=== PATIENT | female | born 1990 | race Caucasian/White ===

== ENCOUNTER 2018-12-15 09:42 | Emergency (ER) | payer OTHER ==
[2018-12-15 09:56] VITALS: BP 108/64; BMI 22.3
[2018-12-15] MEDS ORDERED: ONDANSETRON *ODT* 4 MG TABLET SL ONE (10:21)
[2018-12-15] MEDS ORDERED: ACETAMINOPHEN 325 MG TABLET (FP) PO ONE (10:21)
[2018-12-15] MEDS ORDERED: DEXAMETHASONE LIQUID 0.5 MG/5 ML PO ONE (10:21)
--- NOTE | 2018-12-15 10:26 | PDOC ---
History of Present Illness - General Chief Complaint: Sore Throat Stated Complaint: SORE THROAT/ FEVER Time Seen by Provider: 12/15/18 09:55 History Source: Patient Exam Limitations: No Limitations Past History - Travel Traveled outside of the country in the last 30 days: No Close contact w/someone who was outside of country & ill: No - Past Medical History Allergies/Adverse Reactions: Allergies Allergy/AdvReac Type Severity Reaction Status Date / Time Iodinated Contrast Media Allergy Severe Difficulty Verified 12/15/18 09:56 [IV Dye, Iodine Containing Breathing Contrast ] Home Medications: Ambulatory Orders Albuterol Sulfate Inhaler - [Ventolin HFA Inhaler -] 1 - 2 inh PO QID #1 inhaler 09/24/14 Asthma: Yes COPD: No - Immunization History Td Vaccination: Yes Immunization Up to Date: Yes - Psycho Social/Smoking Cessation Hx Smoking Status: No Smoking History: Never smoked Number of Cigarettes Smoked Daily: 0 Cigars Per Day: 0 Information on smoking cessation initiated: No Hx Alcohol Use: No Drug/Substance Use Hx: No Hx Substance Use Treatment: No Review of Systems - Review of Systems Able to Perform ROS?: Yes Comments:: 12/15/18 10:22 CONSTITUTIONAL: Present: fever, body aches Absent: fever, chills, diaphoresis, generalized weakness, malaise, loss of appetite HEENT: Present: sore throat Absent: rhinorrhea, nasal congestion, throat pain, throat swelling, difficulty swallowing, mouth swelling, ear pain, eye pain, visual Changes CARDIOVASCULAR: Absent: chest pain, loss of consciousness, palpitations, irregular heart rate, peripheral edema RESPIRATORY: Absent: cough, shortness of breath, dyspnea with exertion, orthopnea, wheezing, stridor, hemoptysis GASTROINTESTINAL: Absent: abdominal pain, abdominal distension, nausea, vomiting, diarrhea, constipation, melena, hematochezia GENITOURINARY: Absent: dysuria, frequency, urgency, hesitancy, hematuria, flank pain, genital pain MUSCULOSKELETAL: Absent: myalgia, arthralgia, joint swelling SKIN: Absent: rash, itching, pallor HEMATOLOGIC/IMMUNOLOGIC: Absent: easy bleeding, easy bruising, lymphadenopathy, frequent infections ENDOCRINE: Absent: unexplained weight gain, unexplained weight loss, heat intolerance, cold intolerance NEUROLOGIC: Absent: headache, focal weakness or paresthesias, dizziness, unsteady gait, seizure, mental status changes, bladder or bowel incontinence PSYCHIATRIC: Absent: anxiety, depression, suicidal or homicidal ideation, hallucinations. Is the patient limited Swedish proficient: No *Physical Exam - Vital Signs Last Vital Signs Temp Pulse Resp BP Pulse Ox 100.4 F H 119 H 19 108/64 99 12/15/18 09:54 12/15/18 09:54 12/15/18 09:54 12/15/18 09:54 12/15/18 09:54 - Physical Exam Comments: 12/15/18 10:24 GENERAL: Well developed, well nourished. Awake and alert. No acute distress. HEENT: Normocephalic, atraumatic. PERRLA, EOMI. No conjunctival pallor. Sclera are non- icteric. Moist mucous membranes. Oropharynx is erythematous with 3+ tonsils and exudate. Uvula is midline. TM's are pearly mary in color with good cone of light b/l. NECK: Supple. Full ROM. No JVD. Carotid pulses 2+ and symmetric, without bruits. No thyromegaly. No lymphadenopathy. CARDIOVASCULAR: Regular rate and rhythm. No murmurs, rubs, or gallops. Distal pulses are 2+ and symmetric. PULMONARY: No evidence of respiratory distress. Lungs clear to auscultation bilaterally. No wheezing, rales or rhonchi. SKIN: Warm and dry. Normal capillary refill. No rashes. No jaundice. NEUROLOGICAL: Alert, awake, appropriate. Cranial nerves 2-12 intact. No deficits to light touch and temperature in face, upper extremities and lower extremities. No motor deficits in the in face, upper extremities and lower extremities. Normoreflexic in the upper and lower extremities. Normal speech. Toes are down- going bilaterally. Gait is normal without ataxia. PSYCHIATRIC: Cooperative. Good eye contact. Appropriate mood and affect. Medical Decision Making - Medical Decision Making 12/15/18 10:24 The patient is a 28-year-old female past medical history of asthma who presents to the ER today for sore throat and fever for 1 day. She states that it is difficult to swallow. She tried taking Tylenol yesterday with some relief of her symptoms. She has not taken any medication today. She is febrile at triage. Denies cough, chills, vomiting and diarrhea. She does admit to associated nausea. A/P: Pharyngitis On exam throat is erythematous with 3+ tonsils and exudate. Uvula is midline Patient febrile to 100.4 Fahrenheit in triage. Centor criteria is a 3 at this time. Rapid strep sent Meds ordered Reevaluate 12/15/18 11:21 Strep positive Requesting bicillin shot Will dc home with supportive therapy and PCP follow up Patient tolerates Bicillin shot. I discussed the physical exam findings, ancillary test results and final diagnoses with the patient. I answered all of the patient's questions. The patient was satisfied with the care received and felt comfortable with the discharge plan and treatment plan. The Patient agrees to follow up with the primary care physician/specialist within 24-72 hours. Return precautions were given. Discharge - Discharge Information Problems reviewed: Yes Clinical Impression/Diagnosis: Strep throat Condition: Stable Disposition: HOME - Admission No - Follow up/Referral Referrals: Chandana Thomas MD [Staff Physician] - - Patient Discharge Instructions Patient Printed Discharge Instructions: DI for Strep Throat Additional Instructions: You have strep throat. This is a bacterial infection. You were treated with an injection of Bicillin (antibiotic) you do not need any more antibiotics at this time. Take the steroids as directed starting tomorrow. You may take Tylenol 650mg every 4 hours as needed for pain or fever. Warm water gargles and cough drops and just may also help her symptoms. Please throw way your toothbrush 3 days into treatment to prevent reinfection. Please follow up with your primary care doctor next week. Return to emergency department if you have worsening pain, difficulty swallowing , changes in your voice, lightheadedness, dizziness, or any changes in your symptoms. - Post Discharge Activity Work/Back to School Note: Back to Work
[2018-12-15] MEDS ORDERED: ACETAMINOPHEN 325 MG TABLET (FP) ONE (10:30)
[2018-12-15] MEDS ORDERED: DEXAMETHASONE SOD PHOSPHATE 10 MG/1 ML VIAL ONE (10:30)
[2018-12-15] MEDS ORDERED: ONDANSETRON *ODT* 4 MG TABLET ONE (10:31)
[2018-12-15] MEDS ORDERED: PENICILLIN G BENZATHINE 1,200,000 UNIT/2 ML PFS IM ONE ×2 (11:27→11:49)
[2018-12-15 12:24] VITALS: PULSE 108; TEMP 99.9
== END 2018-12-15 12:24 | disposition home or self-care (01) ==
LOC: JERFT 09:42
DX: J02.0 Streptococcal pharyngitis (principal); J45.909 Unspecified asthma, uncomplicated; Z91.041 Radiographic dye allergy status
CPT/HCPCS: 87880; 99282-25; Q0162

== ENCOUNTER 2019-01-19 12:35 | Emergency (ER) | payer OTHER ==
--- NOTE | 2019-01-19 12:42 | PDOC ---
Rapid Medical Evaluation Time Seen by Provider: 01/19/19 12:38 Medical Evaluation: Allergies Allergy/AdvReac Type Severity Reaction Status Date / Time Iodinated Contrast Media Allergy Severe Difficulty Verified 12/15/18 09:56 [IV Dye, Iodine Containing Breathing Contrast ] 01/19/19 12:39 CC: left sided chest pain x1 week- worse with deep inspiration PE: No respiratory distress. Lungs with left sided wheezes. Orders: EKG, UPT, CXR, nebs Patient will proceed to ER for continued evaluation. Discharge Disposition - Diagnosis Inspiratory wheeze on examination - Referrals - Patient Instructions - Post Discharge Activity
[2019-01-19 12:44] VITALS: BP 114/79; PULSE 77; TEMP 97.5; BMI 24.3
[2019-01-19] MEDS ORDERED: ALBUTEROL SO4 2.5/IPRATROPIUM 0.5 INH SOL 3 ML VIAL.NEB. NEB SCH (12:45)
[2019-01-19] MEDS ORDERED: DEXAMETHASONE LIQUID 0.5 MG/5 ML PO ONE (13:04)
[2019-01-19] MEDS ORDERED: DEXAMETHASONE SOD PHOSPHATE 10 MG/1 ML VIAL ONE (13:13)
[2019-01-19] MEDS ORDERED: ALBUTEROL SO4 2.5/IPRATROPIUM 0.5 INH SOL 3 ML VIAL.NEB. NEB ONE (13:13)
--- NOTE | 2019-01-19 14:10 | PDOC ---
History of Present Illness - General Chief Complaint: Chest Pain Stated Complaint: CHEST PAIN/ SOB Time Seen by Provider: 01/19/19 12:38 - History of Present Illness Initial Comments: 01/19/19 14:09 28-year-old female with a past medical history of asthma presents for 1 week of left-sided chest pain Past History - Past Medical History Allergies/Adverse Reactions: Allergies Allergy/AdvReac Type Severity Reaction Status Date / Time Iodinated Contrast Media Allergy Severe Difficulty Verified 01/19/19 12:44 [IV Dye, Iodine Containing Breathing Contrast ] Home Medications: Ambulatory Orders Albuterol Sulfate Inhaler - [Ventolin HFA Inhaler -] 1 - 2 inh PO QID #1 inhaler 09/24/14 predniSONE [Deltasone -] 40 mg PO DAILY #6 tablet 12/15/18 Asthma: Yes COPD: No - Immunization History Td Vaccination: Yes Immunization Up to Date: Yes - Psycho Social/Smoking Cessation Hx Smoking Status: No Smoking History: Never smoked Have you smoked in the past 12 months: No Number of Cigarettes Smoked Daily: 0 Cigars Per Day: 0 Information on smoking cessation initiated: No Hx Alcohol Use: No Drug/Substance Use Hx: No Hx Substance Use Treatment: No Review of Systems - Review of Systems Cardiac (ROS): Yes: Chest Pain *Physical Exam - Vital Signs Last Vital Signs Temp Pulse Resp BP Pulse Ox 97.5 F L 77 18 114/79 100 01/19/19 12:41 01/19/19 12:41 01/19/19 12:41 01/19/19 12:41 01/19/19 12:41 - Physical Exam Comments: 01/19/19 14:09 GENERAL: The patient is awake, alert, and fully oriented, in no acute distress. HEAD: Normal with no signs of trauma. EYES: sclera anicteric, conjunctiva clear. ENT: Ears normal NECK: Normal range of motion LUNGS: Breath sounds equal, clear to auscultation bilaterally. No wheezes, and no crackles. HEART: S1 and S2 without murmur, rub or gallop. ABDOMEN: Soft, nontender, normoactive bowel sounds. No guarding, no rebound. No masses. EXTREMITIES: Normal range of motion, no edema. No clubbing or cyanosis. No cords, erythema, or tenderness. NEUROLOGICAL: Cranial nerves II through XII grossly intact. Normal speech, normal gait. PSYCH: Normal mood, normal affect. SKIN: Warm, Dry, normal turgor, no rashes or lesions noted. ED Treatment Course - ADDITIONAL ORDERS Additional order review: Laboratory Results 01/19/19 13:00 Urine HCG, Qual Negative - Medications Given in the ED: ED Medications Discontinued Medications Generic Name Dose Route Start Last Admin Trade Name Mahsa PRN Reason Stop Dose Admin Albuterol/Ipratropium 1 amp 01/19/19 12:45 01/19/19 13:18 Duoneb - NEB 01/19/19 13:31 1 amp Q15M HIEU Administration Dexamethasone 10 mg 01/19/19 13:04 01/19/19 13:18 Decadron Liquid - PO 01/19/19 13:05 10 mg ONCE ONE Administration Medical Decision Making - Medical Decision Making 01/19/19 14:09 Patient was examined pre-and post DuoNeb. Her symptoms resolved post DuoNeb. I did not hear any wheezing. She was given Decadron her chest x-ray and EKG were normal. Follow-up with PCP Discharge - Discharge Information Problems reviewed: Yes Clinical Impression/Diagnosis: Asthma exacerbation Clinical Impression/Diagnosis: (Ruled Out): Inspiratory wheeze on examination Condition: Stable Disposition: HOME - Admission No - Follow up/Referral - Patient Discharge Instructions Additional Instructions: Continue your current medications as directed. Return to the emergency room for worsening symptoms. Without fail please follow-up with your primary care physician in 1 to 2 days for further evaluation and treatment options. - Post Discharge Activity
--- NOTE | 2019-01-19 15:09 | EKG ---
Test Reason : Blood Pressure : / mmHG Vent. Rate : 073 BPM Atrial Rate : 073 BPM P-R Int : 144 ms QRS Dur : 080 ms QT Int : 392 ms P-R-T Axes : 011 063 039 degrees QTc Int : 431 ms NORMAL SINUS RHYTHM NORMAL ECG NO PREVIOUS ECGS AVAILABLE Confirmed by DIANA SCOTT, KIRILL ([id number]) on 01/19/2019 3:09:03 PM Referred By: Confirmed By:KIRILL ORTIZ MD
== END 2019-01-19 14:22 | disposition home or self-care (01) ==
LOC: JERFT 12:35
PROC: 3E0F7GC Introduction of Other Therapeutic Substance into Respiratory Tract, Via Natural or Artificial Opening (ICD-10-PCS; principal; 2019-01-19)
DX: J45.901 Unspecified asthma with (acute) exacerbation (principal); Z91.041 Radiographic dye allergy status
CPT/HCPCS: 71046-TC-FY; 84703; 93005; 93010; 99281-25

== ENCOUNTER 2019-03-12 18:44 | Emergency (ER) | payer OTHER ==
[2019-03-12 18:48] VITALS: BP 107/69; PULSE 73; TEMP 98; BMI 23.9
--- NOTE | 2019-03-12 19:23 | PDOC ---
History of Present Illness - General Chief Complaint: Pain Stated Complaint: PAIN Time Seen by Provider: 03/12/19 19:00 History Source: Patient Exam Limitations: Clinical Condition - History of Present Illness Travel History: No Initial Comments: 03/12/19 19:18 Patient with no significant past medical history -0-1-2 LMP January 25 presented with complaint of intermittent crampy lower abdominal pain similar to when she had a miscarriage over a year ago. Patient denies vaginal bleeding. Patient report pain now 5 out of 10 cramping pain which was 8 out of 10 cramping pain earlier today. Reports pain started yesterday. Patient report finding a positive 2 days ago with home test. Denies vaginal discharge, urinary frequency, dysuria, back pains or burning with urination. Patient did not take anything for symptoms. Denies any other symptoms Timing/Duration: reports: intermittent Past History - Past Medical History Allergies/Adverse Reactions: Allergies Allergy/AdvReac Type Severity Reaction Status Date / Time Iodinated Contrast Media Allergy Severe Difficulty Verified 03/12/19 18:48 [IV Dye, Iodine Containing Breathing Contrast ] Home Medications: Ambulatory Orders Albuterol Sulfate Inhaler - [Ventolin HFA Inhaler -] 1 - 2 inh PO QID #1 inhaler 09/24/14 predniSONE [Deltasone -] 40 mg PO DAILY #6 tablet 12/15/18 Asthma: Yes COPD: No - Immunization History Td Vaccination: Yes Immunization Up to Date: Yes - Psycho Social/Smoking Cessation Hx Smoking Status: No Smoking History: Never smoked Have you smoked in the past 12 months: No Number of Cigarettes Smoked Daily: 0 Cigars Per Day: 0 Hx Alcohol Use: No Drug/Substance Use Hx: No Hx Substance Use Treatment: No Review of Systems - Review of Systems Able to Perform ROS?: Yes Is the patient limited [place]orese proficient: No Constitutional: No: Fever, Malaise HEENTM: No: Symptoms Reported, See HPI, Eye Pain, Blurred Vision, Tearing, Recent change in vision, Double Vision, Cataracts, Ear Pain, Ocular Prothesis, Ear Discharge, Nose Pain, Nose Congestion, Tinnitus, Nose Bleeding, Hearing Loss , Throat Pain, Throat Swelling, Mouth Pain, Dental Problems, Difficulty Swallowing, Mouth Swelling, Other Respiratory: No: Symptoms reported, See HPI, Cough, Orthopnea, Shortness of Breath, SOB with Exertion, SOB at Rest, Stridor, Wheezing, Productive cough, Hemoptysis, Other Cardiac (ROS): No: Symptoms Reported, See HPI, Chest Pain, Edema, Irregular Heart Rate, Lightheadedness, Palpitations, Syncope, Chest Tightness, Other ABD/GI: Yes: Symptoms Reported, See HPI, Abdominal Distended, Nausea, Abdominal cramping (intermittent cramping lower abd pain). No: Constipated, Diarrhea, Difficulty Swallowing, Poor Appetite, Vomiting, Indigestion : No: Symptoms Reported, Burning, Dysuria, Discharge, Frequency, Urgency, Other (vaginal bleeding) Musculoskeletal: No: Symptoms Reported Neurological: No: Symptoms reported, Weakness, Dizziness All Other Systems: Reviewed and Negative *Physical Exam - Vital Signs Last Vital Signs Temp Pulse Resp BP Pulse Ox 98 F 73 18 107/69 100 03/12/19 18:45 03/12/19 18:45 03/12/19 18:45 03/12/19 18:45 03/12/19 18:45 - Physical Exam General Appearance: Yes: Nourished, Appropriately Dressed. No: Apparent Distress HEENT: positive: Normal ENT Inspection Respiratory/Chest: positive: Lungs Clear, Normal Breath Sounds. negative: Respiratory Distress, Accessory Muscle Use Cardiovascular: positive: Regular Rhythm, Regular Rate Gastrointestinal/Abdominal: positive: Normal Bowel Sounds, Tender (mild suprapubic discomfort), Flat, Soft. negative: Organomegaly, Guarding, Rebound Musculoskeletal: positive: Normal Inspection. negative: CVA Tenderness Extremity: positive: Normal Capillary Refill, Normal Inspection, Normal Range of Motion Integumentary: positive: Normal Color Neurologic: positive: Fully Oriented, Alert, Normal Mood/Affect, Normal Response ED Treatment Course - LABORATORY CBC & Chemistry Diagram: 03/12/19 19:14 03/12/19 19:14 - RADIOLOGY Radiology Studies Ordered: Category Date Time Status TRANSVAGINAL US PREG [US] Stat Ultrasound 03/12/19 19:05 Ordered Medical Decision Making - Medical Decision Making 03/12/19 19:20 Patient with no significant past medical history -0-1-2 LMP January 25 presented with complaint of intermittent crampy lower abdominal pain similar to when she had a miscarriage over a year ago. Patient denies vaginal bleeding. Patient report pain now 5 out of 10 cramping pain which was 8 out of 10 cramping pain earlier today. Reports pain started yesterday. Denies vaginal discharge, urinary frequency, dysuria, back pains or burning with urination. Patient did not take anything for symptoms. Denies any other symptoms. Patient report finding a positive 2 days ago with home test Exam significant for mild suprapubic discomfort without guarding or rebound otherwise unremarkable exam. No vaginal bleeding on exam. Patient symptoms likely cramps from . Given patient finding out past test 2 days ago with no documented IUP, will do basic lab with CBC and beta-hCG in order transvaginal ultrasound to evaluate to rule out ectopic. 03/12/19 20:46 CBC unremarkable. Beta-hCG chills. 33,500. Patient stable pending transvaginal ultrasound 03/12/19 21:49 Transvaginal ultrasound shows IUP of 6.4 weeks gestational age. heart rate of 122 bpm. Patient asymptomatic and clinically stable for discharge with advised to take Tylenol as needed for pain and hot compress to abdomen as needed for abdominal discomfort with CR[employer] ANALYST follow-up Discharge - Discharge Information Problems reviewed: Yes Clinical Impression/Diagnosis: 6 weeks gestation of Condition: Stable Disposition: HOME - Admission No - Follow up/Referral Referrals: Richard Justice MD [Staff Physician] - - Patient Discharge Instructions Patient Printed Discharge Instructions: Common Discomforts and Bodily Changes During Additional Instructions: pelvic ultrasound shows live intra-uterine of 6wks and 4 days. Follow- up with your OB as needed. Take Tylenol as needed for pain and use warm compress as needed for abdominal pains. Come back to ER if worsening pain with vaginal bleeding - Post Discharge Activity
[2019-03-12 19:24] LABS: BASO % 0.6 % (0-2.0); EOS % 2.5 % (0-4.5); HEMATOCRIT 36.2 % (32.4-45.2); HEMOGLOBIN 11.8 GM/dL (10.7-15.3); LYMPH % 25.7 % (8-40); MCH 31.8 pg (25.7-33.7); MCHC 32.7 g/dl (32.0-36.0); MEAN CELL VOLUME 97.1 fl (80-96); MEAN PLT VOLUME 8.5 fl (7.5-11.1); MONO % 7.7 % (3.8-10.2); NEUT % 63.5 % (42.8-82.8); PLATELET COUNT 246 K/MM3 (134-434); RBC 3.72 M/mm3 (3.60-5.2); RDW 13.9 % (11.6-15.6); WHITE BLOOD COUNT 11.4 K/mm3 (4.0-10.0)
[2019-03-12 20:03] LABS: PH,URINE 5.5 (5.0-8.0); URINE APPEARANCE CLEAR; URINE BILIRUBIN NEGATIVE (NEGATIVE); URINE COLOR YELLOW; URINE GLUCOSE (UA) NEGATIVE (NEGATIVE); URINE KETONE NEGATIVE (NEGATIVE); URINE LEUK ESTERASE NEGATIVE (NEGATIVE); URINE NITRITE NEGATIVE (NEGATIVE); URINE PROTEIN NEGATIVE (NEGATIVE); URINE UROBILINOGEN 0.2 mg/dL (0.2-1.0)
[2019-03-12 20:18] LABS: ALBUMIN 3.7 g/dl (3.4-5.0); BILIRUBIN,TOTAL 0.3 mg/dL (0.2-1); BLOOD UREA NITROGEN 13.2 mg/dL (7-18); CALCIUM 8.8 mg/dL (8.5-10.1); CREATININE 0.8 mg/dL (0.55-1.3); POTASSIUM 3.9 mmol/L (3.5-5.1); TOT PROT 7.2 g/dl (6.4-8.2)
--- NOTE | 2019-03-12 20:43 | PDOC ---
*Physical Exam - Vital Signs Last Vital Signs Temp Pulse Resp BP Pulse Ox 98 F 73 18 107/69 100 03/12/19 18:45 03/12/19 18:45 03/12/19 18:45 03/12/19 18:45 03/12/19 18:45 ED Treatment Course - LABORATORY CBC & Chemistry Diagram: 03/12/19 19:14 03/12/19 19:14 - ADDITIONAL ORDERS Additional order review: 03/12/19 19:14 RBC 3.72 MCV 97.1 H MCHC 32.7 RDW 13.9 D MPV 8.5 Neutrophils % 63.5 Lymphocytes % 25.7 Monocytes % 7.7 Eosinophils % 2.5 Basophils % 0.6 Medical Decision Making - Medical Decision Making 03/12/19 19:59 Ms Kennedy is 28 yo F with no significant PMH, LMP January 25 presented with complaint of intermittent crampy lower abdominal pain similar to when she had a miscarriage over a year ago. No vaginal bleeding Pain is 5-8/10 Denies vaginal discharge, urinary frequency, dysuria, back pains or burning with urination. Pt seen by Midlevel Provider under my direct supervision Pt interviewed and examined Agree with GUILLERMO physical exam Ancillary studies reviewed Laboratory Tests 03/12/19 19:14 WBC 11.4 H Hgb 11.8 Hct 36.2 Plt Count 246 Type and Screen from 2013 Laboratory Tests 07/27/13 19:35 Blood Type O POSITIVE I agree with plan as outlined by Midlevel Provider 03/12/19 20:43 03/12/19 20:44 FINDINGS: Within the endometrium there is a gestational sac yolk sac or pole. heart motion 122 bpm. [place]-rump length measurement equals 6 weeks 4 days. Estimated date of delivery November 01, 2019. The uterus measures 9.8 x 5.2 x 6 cm. There is no evidence of myometrial masses. The right ovary measures 3 x 1.2 x 2.5 cm. There are no right ovarian masses. The left ovary measures 3.4 x 2.5 x 2.3 cm. Within the left ovary there is a complex corpus luteal cyst. There is no free fluid in the pelvis. IMPRESSION: Single living intrauterine fetus estimated gestational age 6 weeks 4 days. Discharge - Discharge Information Problems reviewed: Yes Clinical Impression/Diagnosis: 6 weeks gestation of Condition: Stable Disposition: HOME - Follow up/Referral Referrals: Cocucci,Richard, MD [Staff Physician] - - Patient Discharge Instructions Patient Printed Discharge Instructions: Common Discomforts and Bodily Changes During Additional Instructions: pelvic ultrasound shows live intra-uterine of 6wks and 4 days. Follow- up with your OB as needed. Take Tylenol as needed for pain and use warm compress as needed for abdominal pains. Come back to ER if worsening pain with vaginal bleeding - Post Discharge Activity
== END 2019-03-12 21:54 | disposition home or self-care (01) ==
LOC: JER 18:44
DX: O26.891 Other specified pregnancy related conditions, first trimester (principal); Z3A.01 Less than 8 weeks gestation of pregnancy; R10.30 Lower abdominal pain, unspecified; Z91.041 Radiographic dye allergy status
CPT/HCPCS: 36415; 76817-TC; 80053; 81003; 84702; 85025; 87086; 99282-25

== ENCOUNTER 2019-03-22 18:51 | Emergency (ER) | payer OTHER ==
[2019-03-22 18:56] VITALS: BP 118/56; PULSE 78; TEMP 98; BMI 23.9
--- NOTE | 2019-03-22 21:22 | PDOC ---
History of Present Illness - General Chief Complaint: Pain Stated Complaint: ABD PAIN/6 WKS PREG Time Seen by Provider: 03/22/19 20:50 History Source: Patient Exam Limitations: No Limitations - History of Present Illness Initial Comments: 28 y/o F, A1, presented to the ED c/o of lower abdominal pain and cramping of 1 week duration which has worsened since onset accompanied by minimal pink and white vaginal discharge. Pt reports that she was seen in the ED last week for similar symptoms and was found to be 6 wk and 4 days with a IUP on Trans-Vaginal US. Pt denies f/c/n/v/d/,chest pain, dysuria, polyuria, maladorous oder. 03/22/19 21:18 03/22/19 21:23 Associated Symptoms: reports: denies symptoms. denies: diaphoresis, fever/ chills, nausea/vomiting, shortness of breath Past History - Past Medical History Allergies/Adverse Reactions: Allergies Allergy/AdvReac Type Severity Reaction Status Date / Time Iodinated Contrast Media Allergy Severe Difficulty Verified 03/22/19 18:56 [IV Dye, Iodine Containing Breathing Contrast ] Home Medications: Ambulatory Orders Albuterol Sulfate Inhaler - [Ventolin HFA Inhaler -] 1 - 2 inh PO QID #1 inhaler 09/24/14 predniSONE [Deltasone -] 40 mg PO DAILY #6 tablet 12/15/18 Asthma: Yes COPD: No - Immunization History Td Vaccination: Yes Immunization Up to Date: Yes - Psycho Social/Smoking Cessation Hx Smoking Status: No Smoking History: Never smoked Have you smoked in the past 12 months: No Number of Cigarettes Smoked Daily: 0 Cigars Per Day: 0 Hx Alcohol Use: No Drug/Substance Use Hx: No Hx Substance Use Treatment: No Review of Systems - Review of Systems Able to Perform ROS?: Yes Is the patient limited Tajik proficient: No Constitutional: Yes: Weight Stable. No: Chills, Diaphoresis, Fever HEENTM: Yes: Symptoms Reported. No: Eye Pain, Blurred Vision Respiratory: Yes: Symptoms reported. No: Cough, Shortness of Breath, Wheezing Cardiac (ROS): Yes: Symptoms Reported. No: Chest Pain, Chest Tightness ABD/GI: Yes: Symptoms Reported. No: Abdominal Distended, Constipated, Diarrhea , Nausea, Vomiting : Yes: Symptoms Reported, Discharge (pink discharge). No: Burning, Dysuria, Flank Pain, Hematuria, Urgency Neurological: Yes: Symptoms reported. No: Headache, Numbness *Physical Exam - Vital Signs Last Vital Signs Temp Pulse Resp BP Pulse Ox 98 F 78 18 118/56 L 100 03/22/19 18:54 03/22/19 18:54 03/22/19 18:54 03/22/19 18:54 03/22/19 18:54 - Physical Exam General Appearance: Yes: Nourished, Appropriately Dressed HEENT: positive: EOMI, PROSPER, Normal ENT Inspection, Pharynx Normal Neck: positive: Trachea midline, Normal Thyroid, Supple Respiratory/Chest: positive: Lungs Clear, Normal Breath Sounds. negative: Crackles, Rales, Wheezing Cardiovascular: positive: Regular Rhythm, Regular Rate, S1, S2. negative: Murmur, Gallop/S3, Gallop/S4 Vascular Pulses: Dorsalis-Pedis (R): 2+, Doralis-Pedis (L): 2+ Female Pelvic Exam: positive: cervical os closed, normal adnexa, discharge, vaginal bleeding. negative: adnexal tenderness Gastrointestinal/Abdominal: positive: Normal Bowel Sounds, Flat, Tenderness ( lower abdominal pain). negative: Organomegaly, Guarding, Rebound Neurologic: positive: Fully Oriented, Alert, Normal Mood/Affect ED Treatment Course - RADIOLOGY Radiology Studies Ordered: Category Date Time Status TRANSVAGINAL US PREG [US] Stat Ultrasound 03/22/19 21:17 Ordered Medical Decision Making - Medical Decision Making 28 y/o F, A1, presented to the ED c/o of lower abdominal pain and cramping of 1 week duration which has worsened since onset accompanied by minimal pink and white vaginal discharge #Vaginal discharge white discharge visualized at the OS single polyp vs cyst visualized at the OS Transvaginal US Beta Hcg UA, UCx 03/22/19 21:29 Discharge - Discharge Information Problems reviewed: Yes Clinical Impression/Diagnosis: Vaginal discharge, 6 weeks gestation of Condition: Improved Disposition: HOME - Admission No - Follow up/Referral - Patient Discharge Instructions Patient Printed Discharge Instructions: and Housework: Could You Be Putting Your Baby at Risk?, The Truth About Sex During , DI for Vaginal Discharge Additional Instructions: You were seen in the emergency room for pink vaginal discharge While in the emergency room, we evaluated you with lab work, blood work, imaging including Ultrasound of your uterus. We found that your tests were all normal and your is intact. You vaginal discharge is likely due to an yeast infection. Please follow up with your ENVIRONMENTAL MARKETING REPRESENTATIVE as scheduled for your visit. Please follow up with your primary care physician within 1 week Return to the emergency room, if you experience worsening of your symtpoms, nausea, vomiting, vaginal bleed, abdominal pain or any worsening or your condition. - Post Discharge Activity
--- NOTE | 2019-03-22 21:39 | PDOC ---
Documentation entered by Shelia Diana SCRIBE, acting as scribe for Cindy Sam MD. Cindy Sam MD: This documentation has been prepared by the scribe, Shelia Diana SCRIBE, under my direction and personally reviewed by me in its entirety. I confirm that the documentation accurately reflects all work, treatment, procedures, and medical decision making performed by me. Attending Attestation - Resident Resident Name: Cooper Sam - ED Attending Attestation I have performed the following: I have examined & evaluated the patient, The case was reviewed & discussed with the resident, I agree w/resident's findings & plan, Exceptions are as noted - HPI HPI: 03/22/19 21:29 The patient is a 28 year old female, in the [place] , A, 6 weeks with significant past medical history of miscarriage who presents to the ED with suprapubic abdominal pain, cramping and pink-like discharge for x1 week. As per patient, she is concerned that this is possibly another miscarriage as symtoms are similar to her 3rd when she had a miscarraige, prompting her arrival to the ED. Patient adds recent travel/deployment from [facility]. Allergies: Iodinated Contrast Media VP INTEGRATION: Dr. Sebastian - Physicial Exam PE: 03/22/19 21:31 GENERAL: Well-appearing, well-nourished. No apparent distress. HEENT: Normocephalic, atraumatic. PERRL, EOM intact. CARDIOVASCULAR: Normal S1, S2. Regular rate and rhythm. PULMONARY: Clear to auscultation bilaterally. ABDOMEN: Soft, non-distended, non-tender. EXTREMITIES: Normal ROM in all four extremities. No gross deformities. SKIN: Warm, dry. No rash NEUROLOGICAL: No focal neurological deficits. PELVIC EXAM: External genitalia normal without lesions. +Polyp in cervix, no blood. Thick yellowish discharge, pain is suprapubic. Cervix is long and closed. No cervical motion tenderness. Uterus is nontender and normal in size. Adnexa are nontender and without masses. Follow up visit Dr. Sebastian - Medical Decision Making 03/23/19 01:47 Intravaginal ultrasound showed a single live intrauterine of 8 weeks and 3 days with heart tones 166 and a closed cervix 03/23/19 01:48 IMP early w pelvic pain plan follow up with product/device technologist
[2019-03-22 22:13] LABS: PH,URINE 5.5 (5.0-8.0); URINE APPEARANCE CLEAR; URINE BILIRUBIN NEGATIVE (NEGATIVE); URINE COLOR YELLOW; URINE GLUCOSE (UA) NEGATIVE (NEGATIVE); URINE KETONE NEGATIVE (NEGATIVE); URINE LEUK ESTERASE NEGATIVE (NEGATIVE); URINE NITRITE NEGATIVE (NEGATIVE); URINE PROTEIN NEGATIVE (NEGATIVE); URINE UROBILINOGEN 0.2 mg/dL (0.2-1.0)
--- NOTE | 2019-03-22 23:57 | PDOC ---
*Physical Exam - Vital Signs Last Vital Signs Temp Pulse Resp BP Pulse Ox 98 F 78 18 118/56 L 100 03/22/19 18:54 03/22/19 18:54 03/22/19 18:54 03/22/19 18:54 03/22/19 18:54 ED Treatment Course - ADDITIONAL ORDERS Additional order review: Laboratory Results 03/22/19 03/22/19 21:38 21:38 Beta HCG, Quant 07910.1 Urine Color Yellow Urine Appearance Clear Urine pH 5.5 Ur Specific [place] 1.015 Urine Protein Negative Urine Glucose (UA) Negative Urine Ketones Negative Urine Blood Negative Urine Nitrite Negative Urine Bilirubin Negative Urine Urobilinogen 0.2 Ur Leukocyte Esterase Negative - RADIOLOGY Radiograph Interpretation: THIS IS A 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 heart rate noted at 166 bpm. No obvious subchorionic hemorrhage. The cervix appears closed. No large ovarian cysts. Duplex Ultrasound: Appropriate arterial and/or venous flow are noted in both ovaries, making torsion unlikely at this time. No significant free pelvic fluid. 03/22/19 23:54 Medical Decision Making - Medical Decision Making Pt received as signout TVUS w/ single live IUP w/ normal FHT Plan for D/C w/ OBGYN f/u Discharge instructions and return precautions given Patient in agreement and verbalized understanding Dispo: Home Discharge - Discharge Information Problems reviewed: Yes Clinical Impression/Diagnosis: Vaginal discharge, 6 weeks gestation of Condition: Improved Disposition: HOME - Admission No - Follow up/Referral - Patient Discharge Instructions Patient Printed Discharge Instructions: and Housework: Could You Be Putting Your Baby at Risk?, The Truth About Sex During , DI for Vaginal Discharge Additional Instructions: You were seen in the emergency room for pink vaginal discharge While in the emergency room, we evaluated you with lab work, blood work, imaging including Ultrasound of your uterus. We found that your tests were all normal and your is intact. You vaginal discharge is likely due to an yeast infection. Your US was notable for a single live intrauterine . A printout of the read was provided Please follow up with your ELECTRICIAN HELPER POWERHOUSE as scheduled for your visit. Please follow up with your primary care physician within 1 week Return to the emergency room, if you experience worsening of your symtpoms, nausea, vomiting, vaginal bleed, abdominal pain or any worsening or your condition. - Post Discharge Activity Work/Back to School Note: Back to Work
== END 2019-03-23 | disposition home or self-care (01) ==
LOC: JER 18:51
DX: O26.891 Other specified pregnancy related conditions, first trimester (principal); Z3A.01 Less than 8 weeks gestation of pregnancy; N89.8 Other specified noninflammatory disorders of vagina
CPT/HCPCS: 36415; 76801-TC; 81003; 84702; 87086; 99282-25

== ENCOUNTER 2020-01-29 19:37 | Emergency (ER) | payer OTHER ==
[2020-01-29 19:48] VITALS: BP 127/83; PULSE 88; TEMP 98.1; BMI 26.5
[2020-01-29] MEDS ORDERED: PANTOPRAZOLE SODIUM 40 MG VIAL IVPB ONE (20:36)
[2020-01-29] MEDS ORDERED: SODIUM CHLORIDE 1,000 ML IV STA ×2 (20:36→21:38)
[2020-01-29] MEDS ORDERED: ONDANSETRON 4 MG/2 ML VIAL IVPUSH ONE (20:37)
[2020-01-29] MEDS ORDERED: ACETAMINOPHEN 1000 MG/100 ML VIAL (NON FORMULARY) IVPB ONE (20:38)
[2020-01-29] MEDS ORDERED: ACETAMINOPHEN INJECTION 100 ML IVPB ONE (20:43)
[2020-01-29] MEDS ORDERED: PANTOPRAZOLE SODIUM 40 MG/100 ML BAG IVPB ONE (20:43)
[2020-01-29 20:56] LABS: BASO % 0.8 % (0-2.0); EOS % 2.5 % (0-4.5); HEMATOCRIT 40.5 % (32.4-45.2); HEMOGLOBIN 13.8 GM/dL (10.7-15.3); LYMPH % 25.4 % (8-40); MCH 32.3 pg (25.7-33.7); MEAN CELL VOLUME 94.9 fl (80-96); MEAN PLT VOLUME 9.7 fl (7.5-11.1); MONO % 9.5 % (3.8-10.2); NEUT % 61.8 % (42.8-82.8); PLATELET COUNT 241 K/MM3 (134-434); RBC 4.26 M/mm3 (3.60-5.2); RDW 14.2 % (11.6-15.6); WHITE BLOOD COUNT 9.6 K/mm3 (4.0-10.0)
[2020-01-29 21:16] LABS: ALBUMIN 4.1 g/dl (3.4-5.0); BLOOD UREA NITROGEN 5.3 mg/dL (7-18)
[2020-01-29 21:19] LABS: CREATININE 0.7 mg/dL (0.55-1.3)
[2020-01-29 21:21] LABS: BILIRUBIN,TOTAL 0.6 mg/dL (0.2-1); TOT PROT 7.9 g/dl (6.4-8.2)
[2020-01-29] MEDS ORDERED: MAG HYDROX/AL HYDROX/SIMETH 30 ML UNIT-DOSE CUP PO ONE (21:49)
[2020-01-29 21:51] LABS: EPI CELLS 16 /uL (0-25.1); HYALINE CASTS 0 /uL (0-3.1); URINE APPEARANCE CLEAR; URINE BACTERIA 733 /uL (0-1359); URINE BILIRUBIN NEGATIVE (NEGATIVE); URINE COLOR YELLOW; URINE GLUCOSE (UA) NEGATIVE (NEGATIVE); URINE KETONE NEGATIVE (NEGATIVE); URINE LEUK ESTERASE 1+ (NEGATIVE); URINE NITRITE NEGATIVE (NEGATIVE); URINE PROTEIN NEGATIVE (NEGATIVE); URINE RBC 4 /uL (0-23.9); URINE UROBILINOGEN 0.2 mg/dL (0.2-1.0); URINE WBC 36 /uL (0-25.8)
[2020-01-29] MEDS ORDERED: MAG HYDROX/AL HYDROX/SIMETH 30 ML UNIT-DOSE CUP ONE (22:05)
== END 2020-01-29 23:35 | disposition home or self-care (01) ==
LOC: JER 19:37
PROC: 3E0333Z Introduction of Anti-inflammatory into Peripheral Vein, Percutaneous Approach (ICD-10-PCS; principal; 2020-01-29)
PROC: 3E033GC Introduction of Other Therapeutic Substance into Peripheral Vein, Percutaneous Approach (ICD-10-PCS; 2020-01-29)
PROC: 3E033GC Introduction of Other Therapeutic Substance into Peripheral Vein, Percutaneous Approach (ICD-10-PCS; 2020-01-29)
PROC: 3E0337Z Introduction of Electrolytic and Water Balance Substance into Peripheral Vein, Percutaneous Approach (ICD-10-PCS; 2020-01-29)
PROC: 3E0337Z Introduction of Electrolytic and Water Balance Substance into Peripheral Vein, Percutaneous Approach (ICD-10-PCS; 2020-01-29)
DX: R11.2 Nausea with vomiting, unspecified (principal)
CPT/HCPCS: 36415; 80053; 81003; 83690; 85025; 87086; 99284-25; J0131

== ENCOUNTER 2020-09-22 12:22 | Emergency (ER) | payer OTHER ==
[2020-09-22 12:45] VITALS: BP 107/66; PULSE 72; TEMP 98.3; BMI 26.5
== END 2020-09-22 13:24 | disposition home or self-care (01) ==
LOC: JER 12:22
DX: S93.491A Sprain of other ligament of right ankle, initial encounter (principal)
CPT/HCPCS: 73610-TC-RT-FY; 73630-TC-RT-FY; 99284-25

== ENCOUNTER 2021-01-24 07:17 | Emergency (ER) | payer OTHER ==
[2021-01-24 07:35] VITALS: BP 119/89; PULSE 93; TEMP 98.6; BMI 26.5
== END 2021-01-24 07:50 | disposition home or self-care (01) ==
LOC: JER 07:17
DX: S61.412A Laceration without foreign body of left hand, initial encounter (principal); W26.0XXA Contact with knife, initial encounter; Y92.9 Unspecified place or not applicable
CPT/HCPCS: 99283-25

== ENCOUNTER 2023-02-17 17:52 | Emergency (ER) | payer OTHER ==
[2023-02-17 18:29] VITALS: BP 111/70; PULSE 101; RESP 16; TEMP 98.6; BMI 26.5
[2023-02-17] MEDS ORDERED: ACETAMINOPHEN 500 MG TABLET (FP) PO ONE (19:26)
[2023-02-17] MEDS ORDERED: LIDOCAINE 5% TOPICAL PATCH TP ONE (19:27)
[2023-02-17] MEDS ORDERED: METOCLOPRAMIDE HCL 10 MG TABLET (FP) PO ONE ×2 (19:27→19:31)
[2023-02-17] MEDS ORDERED: LIDOCAINE 4% PATCH TP ONE (19:31)
[2023-02-17] MEDS ORDERED: ACETAMINOPHEN 325 MG TABLET (FP) ONE (19:31)
[2023-02-17 20:24] LABS: HCG,QUALITATIVE URINE Negative
[2023-02-17 20:25] LABS: EPI CELLS >36 /uL (0-25.1); HYALINE CASTS 2 /uL (0-3.1); URINE APPEARANCE CLOUDY; URINE BACTERIA 1787 /uL (0-1359); URINE BILIRUBIN NEGATIVE (NEGATIVE); URINE COLOR YELLOW; URINE GLUCOSE (UA) NEGATIVE (NEGATIVE); URINE KETONE 1+ (NEGATIVE); URINE LEUK ESTERASE NEGATIVE (NEGATIVE); URINE NITRITE NEGATIVE (NEGATIVE); URINE PROTEIN TRACE (NEGATIVE); URINE RBC 94 /uL (0-23.9); URINE WBC 51 /uL (0-25.8)
[2023-02-17] MEDS ORDERED: IBUPROFEN 400 MG TABLET (FP) PO ONE ×2 (20:25→20:31)
[2023-02-17] MEDS ORDERED: AMOX TR/POT CLAV 875MG/125MG TABLETS (FP) PO ONE (20:25)
[2023-02-17] MEDS ORDERED: AMOX TR/POT CLAV 875MG/125MG TABLETS (FP) ONE (20:31)
[2023-02-17] MEDS ORDERED: LIDOCAINE PATCH REMOVAL MC SCH (22:00)
== END 2023-02-17 21:07 | disposition home or self-care (01) ==
LOC: JER 17:52
DX: U07.1 COVID-19 (principal); R55 Syncope and collapse; H66.91 Otitis media, unspecified, right ear; H92.01 Otalgia, right ear; M54.50 Low back pain, unspecified; R11.2 Nausea with vomiting, unspecified
CPT/HCPCS: 81003; 84703; 87086; 87635; 87804; 87807; 93005; 93010; 99284-25